=== PATIENT | female | born 1960 | race Caucasian/White ===

== ENCOUNTER 2018-07-06 20:41 | Emergency (ER) | payer OTHER ==
--- NOTE | 2018-07-06 21:33 | EDM.PDOC ---
ED HPI GENERAL MEDICAL PROBLEM - General Chief Complaint: Genitourinary Problem Stated Complaint: BLADDER INFECTION Time Seen by Provider: 07/06/18 21:27 Source of Information: Reports: Patient History Limitations: Reports: No Limitations - History of Present Illness INITIAL COMMENTS - FREE TEXT/NARRATIVE: pt arrived with ahistory of urinary frequency and bladder pressure. She did feel a little chilly and had a low grade temp. Her last infection was 10 years ago. She does not have severe burning. Onset: Gradual, Other ( Last 2-3 days. ) Duration: Hour(s): Location: Reports: Abdomen Associated Symptoms: Reports: Other ( pressure over her bladder. ) - Related Data Allergies Allergy/AdvReac Type Severity Reaction Status Date / Time No Known Allergies Allergy Verified 07/06/18 20:57 Home Meds: Home Meds NK [No Known Home Meds] 07/06/18 [History] Past Medical History [facility] History: Reports: - Past Surgical History GI Surgical History: Reports: Appendectomy Female Surgical History: Reports: Section ED ROS GENERAL - Review of Systems Review Of Systems: See Below Constitutional: Reports: Chills, Malaise HEENT: Reports: No Symptoms Respiratory: Reports: No Symptoms Cardiovascular: Reports: No Symptoms Endocrine: Reports: No Symptoms GI/Abdominal: Reports: Other (pressure over the bladder. ) : Reports: Frequency Musculoskeletal: Reports: No Symptoms Skin: Reports: No Symptoms Neurological: Reports: No Symptoms ED EXAM, RENAL/ - Physical Exam Exam: See Below Text/Narrative:: pt is going to the bathroom frequently and has pressure over her bladder. This is worse today. She has felt chilly. Exam Limited By: No Limitations General Appearance: Alert, Mild Distress GI/Abdominal: Soft, Non-Tender Back Exam: Other (She does not have cva tenderness. ) Extremities: Normal Inspection Neurological: Alert, Oriented, Normal Cognition Course - Vital Signs Last Recorded V/S: Last Vital Signs Temp 35.6 C 07/06/18 20:57 Pulse 76 07/06/18 20:57 Resp 16 07/06/18 20:57 BP 121/82 07/06/18 20:57 Pulse Ox 97 07/06/18 20:57 - Orders/Labs/Meds Labs: Laboratory Tests 07/06/18 Range/Units 21:07 Urine Color Yellow Urine Appearance Cloudy Urine pH 5.0 (4.5-8.0) Ur Specific Earling 1.020 (1.008-1.030) Urine Protein 100 H (NEGATIVE) mg/dL Urine Glucose (UA) Normal (NEGATIVE) mg/dL Urine Ketones 15 H (NEGATIVE) mg/dL Urine Occult Blood Large (NEGATIVE) Urine Nitrite Negative (NEGATIVE) Urine Bilirubin Small (NEGATIVE) Urine Urobilinogen 1 (NORMAL) mg/dL Ur Leukocyte Esterase Large (NEGATIVE) Urine RBC 10-20 H (0-5) Urine WBC Packed H (0-5) Ur Epithelial Cells Many Amorphous Sediment Few Urine Bacteria Few Urine Mucus Few - Re-Assessments/Exams Free Text/Narrative Re-Assessment/Exam: 07/06/18 21:32 Ua appearwd infected. She has not had a UTI for 10 years. Departure - Departure Time of Disposition: 21:33 Disposition: Home, Self-Care 01 Condition: Fair Clinical Impression: UTI (urinary tract infection) - Discharge Information Instructions: Urinary Tract Infection, Adult, [id number] Referrals: PCP,None [Primary Care Provider] - Forms: ED Department Discharge Care Plan Goals: push fluids, keep bladder emptyied, cipro 500mg bid for 10 days.
== END 2018-07-06 21:43 | disposition home or self-care (01) ==
LOC: JP.ED 20:41 → EDBD 20:41 → JP.ED 21:43
DX: N39.0 Urinary tract infection, site not specified (principal)
CPT/HCPCS: 81001; 99284